=== PATIENT | female | born 1975 | race Caucasian/White ===

== ENCOUNTER → 2019-01-26 | Outpatient (CLI) | payer MEDICARE, OTHER ==
[~2019-01-26] MED LIST: ALBU90I INH; ALBU90OI61; AZIT250 PO; BENZ100A PO; Bactrim Ds Tab1 EACH PO; CYCL10 PO; Diflucan150 MG PO; FLUC150A PO; Flagyl500 MG PO; IBUP600 PO; IBUP800 PO; Keflex500 MG PO; MONDOXYNE NL100 MG PO; ONDA4ODT MM; SULTRIDS PO; TRAZ100 PO; VENL150ER; Zofran Odt4 MG SL
[2019-01-26 13:48] LABS: BASOPHILS ABSOLUTE AUTO 0.03 K/mm3 (0.00-0.23); BASOPHILS PERCENT AUTO 0 % (0-2); EOSINOPHILS ABSOLUTE AUTO 0.09 K/mm3 (0.00-0.68); EOSINOPHILS PERCENT AUTO 1 % (0-6); Hematocrit 36.7 % (33.0-51.0); Hemoglobin 12.2 g/dL (11.5-16.0); IMMATURE GRAN ABSOLUTE AUTO 0.06 K/mm3 (0.00-0.10); IMMATURE GRAN PERCENT AUTO 1 % (0-1); LYMPHOCYTES PERCENT AUTO 21 % (21-46); MONOCYTES ABSOLUTE AUTO 0.58 K/mm3 (0.16-1.47); MONOCYTES PERCENT AUTO 7 % (4-13); Mean Corpuscular HGB Conc 33.2 g/dL (31.5-36.5); Mean Corpuscular Volume 87 fL (80-100); Mean Platelet Volume 10.8 fL (9.1-12.4); NEUTROPHILS ABSOLUTE AUTO 6.22 K/mm3 (1.96-9.15); NEUTROPHILS PERCENT AUTO 70 % (41-73); Platelet Count 251 K/mm3 (150-400); RDW Coefficient Variation 12.3 % (11.7-14.2); RDW Standard Deviation 39.2 fL (35.1-46.3); White Blood Cell Count 8.88 K/mm3 (4.00-11.30)
[2019-01-26 14:43] LABS: Anion Gap 4 mmol/L (6-16); Blood Urea Nitrogen 18 mg/dL (8-24); Bun/Creatinine Ratio 28.3 (12.0-20.0); CO2, Blood 26 mmol/L (21-32); Calcium, Blood 8.2 mg/dL (8.5-10.1); Chloride, Blood 108 mmol/L (98-108); Creatinine, Blood 0.64 mg/dL (0.40-1.00); Glomerular Filtration Rate >60 (60-); Glucose, Blood 84 mg/dL (70-99); Potassium, Blood 4.1 mmol/L (3.5-5.5); Sodium, Blood 138 mmol/L (136-145)
== END | disposition home or self-care (01) ==
LOC: LAB SHORT 13:38 → LAB EV 13:38
PROVIDERS: Physician Assistant Surgical
DX: M79.89 Other specified soft tissue disorders (principal)
CPT/HCPCS: 80048; 85025

== ENCOUNTER 2019-07-29 16:35 | Emergency (ER) | payer MEDICARE, OTHER ==
[~2019-07-29] VITALS: Ht 162.6 cm; Wt 104.0 kg
[2019-07-29] MEDS ORDERED: Bactrim Ds Tab1 EACH PO (17:12)
== END 2019-07-29 17:23 | disposition home or self-care (01) ==
LOC: ER 16:35
DX: L02.416 Cutaneous abscess of left lower limb (principal); Z88.5 Allergy status to narcotic agent; F17.200 Nicotine dependence, unspecified, uncomplicated

== ENCOUNTER 2021-01-24 21:37 | Emergency (ER) | payer MEDICARE, OTHER ==
[~2021-01-24] VITALS: Ht 162.6 cm; Wt 65.8 kg
[~2021-01-24 21:37] MED LIST changes: +AMOCLA875 PO
== END 2021-01-25 00:55 | disposition home or self-care (01) ==
LOC: ER 21:37
DX: S93.401A Sprain of unspecified ligament of right ankle, initial encounter (principal); F17.200 Nicotine dependence, unspecified, uncomplicated; Z88.5 Allergy status to narcotic agent; X50.1XXA Overexertion from prolonged static or awkward postures, initial encounter
CPT/HCPCS: 29515; 73610; 99283-25; L1906

== ENCOUNTER 2025-08-27 03:32 | Emergency (ER) | payer MEDICARE, OTHER ==
[~2025-08-27] VITALS: Ht 162.6 cm; Wt 111.1 kg
[~2025-08-27 03:32] MED LIST changes: +ACET500 PO; +ALBU90OI INH; +CEPH500 PO; +Diflucan100 MG PO; +Ibuprofen600 MG PO; +NITR100CA PO; +PHENA200 PO
[2025-08-27 04:00] VITALS: BP 162/101
[2025-08-27] MEDS ORDERED: Carbamide Peroxide Otic Soln RIGHTEAR ONE (04:00)
[2025-08-27] MEDS ORDERED: Dexamethasone Sod Phos 10 MG/ML 1ML VIAL PO ONE (04:00)
[2025-08-27] MEDS ORDERED: NICO21TP TOP (04:13)
== END 2025-08-27 04:18 | disposition home or self-care (01) ==
LOC: ER 03:32
DX: J02.9 Acute pharyngitis, unspecified (principal); H61.21 Impacted cerumen, right ear; F17.210 Nicotine dependence, cigarettes, uncomplicated
CPT/HCPCS: 99282; A9270; J1100